=== PATIENT | female | born 1940 | race Two or more races ===

== ENCOUNTER → 2016-10-20 | Day surgery (SDC) | payer MEDICARE, BC ==
[2016-10-20] VITALS (9 sets, daily range): BP systolic 121–147; BP diastolic 56–67
[~2016-10-20] VITALS: Ht 160 cm; Wt 64.0 kg
[~2016-10-20] MED LIST: BETA CAROT25000 UNIT PO; BIOTIN1000 MCG PO; CALCIUM600 M1 PO; COQ-10100 M1 PO; FISH OIL500 MG PO; LR 1000ml 1,000 ML IVLG ONE; LR 1000ml ONE; MAGNESIUM500 MG PO; METOPROLOL TART25 MG ORAL; PRAVASTATIN SOD20 M1 ORAL; Propofol 10mg/ml 20ml IV ONE; SERTRALINE HCL50 MG ORAL; SYNTHROID112 MCG ORAL; VITAMIN B COMP1 EAC2 ORAL; VITAMIN C500 M1 ORAL; VITAMIN D400 INTLU ORAL; XARELTO10 MG ORAL; ZINC50 MG ORAL
--- NOTE | 2016-10-20 09:20 | Short Stay Surgery H&P ---
History of Present Illness History of Present Illness Chief Complaint Dysphagia HPI Jeffrey Arnett is a 76 year old female who was admitted on for dysphagia. Patient History Allergies: Coded Allergies: CODEINE (Verified Allergy, Severe, , 10/19/16) PAST MEDICAL HISTORY: (1) IBS (irritable bowel syndrome) (2) Hyperlipidemia (3) Hypothyroid (4) Arrhythmia Past Surgeries: Social History: Medication History Scheduled Ascorbic Acid* (Vitamin C*), 1,000 MG ORAL DAILY, (Reported) Beta-Carotene (Beta Carotene), 25,000 UNIT PO DAILY, (Reported) Biotin (Biotin), 5,000 MCG PO DAILY, (Reported) Calcium Carbonate (Calcium), 1,000 MG PO DAILY, (Reported) Levothyroxine Sodium* (Synthroid*), 112 MCG ORAL DAILY, (Reported) Magnesium Oxide (Magnesium), 500 MG PO DAILY, (Reported) Metoprolol Tartrate* (Metoprolol Tartrate*), 25 MG ORAL DAILY, (Reported) [place]-3 Fatty Acids (Fish Oil), 2,000 MG PO DAILY, (Reported) Pravastatin Sod* (Pravastatin Sod*), 10 MG ORAL 3 TIMES A WEEK, (Reported) Rivaroxaban (Xarelto*), 15 MG ORAL DAILY, (Reported) Sertraline Hcl* (Zoloft*), 50 MG ORAL DAILY, (Reported) Ubidecarenone (Coq-10), 300 MG PO DAILY, (Reported) Vitamin B Complex (Vitamin B Complex), 1 CAP ORAL DAILY, (Reported) Vitamin D (Vitamin D3), 1,000 UNITS ORAL DAILY, (Reported) Zinc Gluconate (Zinc), 50 MG ORAL DAILY, (Reported) Review of Systems Cardiovascular: Reports: no symptoms Respiratory: Reports: no symptoms Skeletal: Reports: no symptoms Gastrointestinal: Reports: other Genitourinary: Reports: no symptoms Neurologic: Reports: no symptoms Endocrine: Reports: other Hematologic: Reports: no symptoms Physical Exam Vital Signs Last Vital Signs Date Time Temp Pulse Resp B/P Pulse Ox O2 Delivery O2 Flow Rate FiO2 10/20/16 07:53 97.7 52 20 147/60 98 Room Air Skin: normal HENT: normal Heart: normal Lungs: normal Abdomen: normal Extremities: normal Genitourinary: normal Plan Plan of Care Upper GI endoscopy Preop Interventions None. Summary of Findings see the reports Final Diagnosis: Attestation Are the patient's medical conditions optimized for surgery? Attestation Response: yes DUNIA LO Oct 20, 2016 09:20
--- NOTE | 2016-10-20 09:21 | Pre-Procedure Note/Attestation ---
Pre-Procedure Note/Attestation Complete Prior to Procedure Planned Procedure: left Procedure Narrative: the examination of the upper GI tract via endoscopy. Indications for Procedure Pre-Operative Diagnosis: R/O esophagitis. Attestation I attest that I discussed the nature of the procedure; its benefits; risks and complications; and alternatives (and the risks and benefits of such alternatives ), prior to the procedure, with the patient (or the patient's legal employee's representative). I attest that, if there was a reasonable possibility of needing a blood transfusion, the patient (or the patient's legal employee's representative) was given the [facility] standardized written summary, pursuant to the Azeem Conrad Blood Safety Act ([place] Health and Safety Code # 1645, as amended). I attest that I re-evaluated the patient just prior to the surgery and that there has been no change in the patient's H&P, except as documented below: TERESITA,SAID Oct 20, 2016 09:21
--- NOTE | 2016-10-20 09:25 | Anethesia Preoperative Eval ---
Anesthesia Pre-op PMH/ROS General Date of Evaluation: Oct 20, 2016 Time of Evaluation: 09:24 Anesthesiologist: Leighton ASA Score: ASA 3 Mallampati Score Class I : Soft palate, uvula, fauces, pillars visible Class II: Soft palate, uvula, fauces visible Class III: Soft palate, base of uvula visible Class IV: Only hard plate visible Mallampati Classification: Class II Surgeon: ivan Diagnosis: abdominal pain Surgical Procedure: EGD Anesthesia History: none Family History: no anesthesia problems Allergies: Coded Allergies: CODEINE (Verified Allergy, Severe, , 10/19/16) Medications: see eMAR Past Medical History Cardiovascular: Reports: HTN, arrhythmia Pulmonary: Denies: COPD, CARRI, asthma, other Gastrointestinal/Genitourinary: Denies: CRI, ESRD, GERD, other Neurologic/Psychiatric: Denies: CVA, TIA, dementia, depression/anxiety, other Endocrine: Reports: hypothyroidism HEENT: Denies: AGUA CALIENTE (L), AGUA CALIENTE (R), cataract (L), cataract (R), glaucoma, other Hematology/Immune: Denies: DVT, anemia, bleeding disorder, other Musculoskeletal/Integumentary: Denies: DDD, DJD, OA, RA, edema, other PMH Narrative: HTN, arrhythmia, hypothyroidism, PSxH Narrative: egd Anesthesia Pre-op Phys. Exam Physician Exam Last Vital Signs Date Time Temp Pulse Resp B/P Pulse Ox O2 Delivery O2 Flow Rate FiO2 10/20/16 07:53 97.7 52 20 147/60 98 Room Air Constitutional: NAD Neurologic: CN 2-12 intact Cardiovascular: RRR Respiratory: CTA Gastrointestinal: S/NT/ND Airway Exam Mallampati Score: Class II MO: full ROM: full Teeth: intact Dentures: no lower, no upper ANNABELLE HUNTER D.O. Oct 20, 2016 09:25
--- NOTE | 2016-10-20 09:34 | Endoscopy Procedure Note ---
Endoscopy Procedure Note Indication for Procedure: Dysphagia, epigastric pains/GERDs Procedures Performed: EGD - Compeletly normal upper GI endoscopy. Biopsy was taken per random from gastric body. Specimen: yes Pt Tolerated Procedure Well: Yes Estimated Blood Loss: none Anesthesiologist: Dr. Manzanares Anesthesia: moderate sedation Medication Given: see anesthesia record Implant(s) used?: No 50 yrs or older w/o bx or poly: Not Applicable 10yrs. F/U not recommended: Not Applicable If not recommended, why?: Med reason:<3 yrs.: System Reason:<3 yrs.: DUNIA LO Oct 20, 2016 09:34
--- NOTE | 2016-10-20 09:35 | Discharge Instructions ---
Discharge Instructions Discharge Instructions Follow up with: See the doctor after 2 weeks in the office. For Congestive Heart Failure Reminder Report to your physician any weight gain of 5 pounds or more in one week. TERESITA,DUNIA Oct 20, 2016 09:35
--- NOTE | 2016-10-20 09:37 | Immediate Post-Op Evaluation ---
Immediate Post-Op Evalulation Immediate Post-Op Evalulation Procedure: EGD with biopsy Date of Evaluation: Oct 20, 2016 Time of Evaluation: 09:37 IV Fluids: 400ml Blood Products: none Estimated Blood Loss: non Urinary Output: due to void Blood Pressure Systolic: 130 Blood Pressure Diastolic: 69 Pulse Rate: 57 Respiratory Rate: 16 O2 Sat by Pulse Oximetry: 98 Temperature (Fahrenheit): 97 Pain Score (1-10): 0 Nausea: No Vomiting: No Complications none Patient Status: awake, reacts Hydration Status: adequate Drug: n/a ANNABELLE HUNTER D.O. Oct 20, 2016 09:37
--- NOTE | 2016-10-20 09:43 | 48 Hour Post Anesthesia Eval ---
Post Anesthesia Evaluation Procedure: EGD with biopsy Date of Evaluation: Oct 20, 2016 Time of Evaluation: 09:41 Blood Pressure Systolic: 125 0: 54 Pulse Rate: 50 Respiratory Rate: 18 Temperature (Fahrenheit): 98.1 O2 Sat by Pulse Oximetry: 98 Nausea: No Vomiting: No Pain Intensity: 0 Hydration Status: adequate Cardiopulmonary Status: stable Mental Status/LOC: patient returned to baseline Follow-up Care/Observations: as per GI Post-Anesthesia Complications: none Follow-up care needed: N/A ANNABELLE HUNTER D.O. Oct 20, 2016 09:43
--- NOTE | 2016-10-20 17:58 | Operative Note - Dictated ---
DATE OF OPERATION: 10/20/2016 REFERRING PHYSICIAN: Dr. Kelly. SURGEON: Chau Kline M.D. PROCEDURE: Esophagogastroduodenoscopy with biopsy. PREOPERATIVE DIAGNOSES: Abdominal pain, history of gastroesophageal reflux disease and dysphagia. POSTOPERATIVE DIAGNOSIS: Completely normal upper gastrointestinal endoscopy. Biopsy was taken per random from gastric body. ANESTHESIOLOGIST: Dr. Manzanares. INSTRUMENT: GIF Olympus upper gastrointestinal video endoscope. DESCRIPTION OF PROCEDURE: The patient after arriving in the endoscopy unit, was told about risks and benefits of the procedure, which she accepted and signed the informed consent. She was then put on the left lateral decubitus position and after adequate IV sedation, the scope was gently passed through the cricopharyngeal area, was lodged into the upper esophagus, and gradually advanced towards gastroesophageal junction. The entire length of the esophagus looked normal. There was no evidence of inflammatory process, ulceration, stricture, etc. At this time, the scope reached towards the gastroesophageal junction, which also looked normal without any evidence of hiatal hernia or Stringer's. Finally, the scope was guided into the stomach. Gastric cavity was distended with insufflation of air and the areas of the fundus and the body and the antrum were examined in an nail galvanizer fashion revealing normal gastric mucosa without any pathological findings. No ulcers, tumors, polyps, inflammatory process, gastritis etc. was found. One random biopsy from gastric body obtained. Subsequently, scope was passed through normal looking pylorus. First and second portion of duodenum were also found to be completely normal. At this time, the scope was pulled out and the procedure was terminated. The patient tolerated the procedure well and left the endoscopy room in good condition. Said Lizbeth Kline DR: AUDI JOB#: [id number] CC:
== END | disposition home or self-care (01) ==
LOC: GAS 07:16
DX: K29.50 Unspecified chronic gastritis without bleeding (principal); R13.10 Dysphagia, unspecified; K58.9 Irritable bowel syndrome, unspecified; E78.5 Hyperlipidemia, unspecified; E03.9 Hypothyroidism, unspecified; I49.9 Cardiac arrhythmia, unspecified; Z79.899 Other long term (current) drug therapy; Z88.5 Allergy status to narcotic agent
CPT/HCPCS: 43239; J2704; J7120; 94003; 94150